=== PATIENT | male | born 1950 | race African-American/Black ===

== ENCOUNTER 2024-09-19 17:49 | Emergency (ER) | payer SELFPAY ==
[~2024-09-19] VITALS: Ht 190.5 cm; Wt 120.0 kg
[2024-09-19 19:30] VITALS: O2SAT 100
[2024-09-19] MEDS: MIDAZOLAM HCL 2 MG/2 ML VIAL IM ONE (19:30)
[2024-09-19] MEDS: TETANUS AND DIPHTHERIA TOX/PF 0.5ML SYR (ADULT) IM ONE (20:32)
[2024-09-19 21:05] LABS: BASOPHILS % 1.7 % (0.0-2.0); HEMATOCRIT. 26.1 % (42.0-52.0); HEMOGLOBIN. 8.5 g/dL (14.0-18.0); LYMPHOCYTES % 44.8 % (20.0-50.0); MEAN CORPUSCULAR HEMOGLOBIN 28.8 pg (28.0-32.0); MEAN CORPUSCULAR HGB CONC 32.6 g/dL (31.0-37.0); MEAN CORPUSCULAR VOLUME 88.3 fL (80.0-94.0); MEAN PLATELET VOLUME 7.7 fl (7.4-10.4); MONOCYTES % 7.4 % (2.0-8.0); NEUTROPHILS % 45.1 % (40.0-76.0); PLATELET 292 x1000/uL (130-400); RED BLOOD CELL COUNT 2.96 mill/uL (4.7-6.1); RED CELL DISTRIBUTION WIDTH 17.6 % (11.6-14.6); WHITE BLOOD COUNT 3.2 x1000/uL (4.5-11.0)
[2024-09-19 21:06] LABS: CHLORIDE 113 mEq/L (98-107); POTASSIUM 3.9 mEq/L (3.5-5.1); SODIUM 146 mEq/L (136-145)
[2024-09-19 21:07] LABS: CALCIUM 8.6 mg/dL (8.7-10.4); CARBON DIOXIDE 25 mEq/L (21-32)
[2024-09-19 21:12] LABS: CREATININE 1.1 mg/dL (0.6-1.3); GLUCOSE 79 mg/dL (70-105); UREA NITROGEN BLOOD 11 mg/dL (9-23)
[2024-09-19 21:13] LABS: ETHANOL BLOOD 278 mg/dL (<10)
[2024-09-19] MEDS ORDERED: IBUP-2029 MT (21:57)
[2024-09-19 22:16] VITALS: BP 148/82; PULSE 57; RESP 17; TEMP 37.05852; O2SAT 100
== END 2024-09-19 22:17 | disposition home or self-care (01) ==
LOC: ER 17:49
DX: F10.129 Alcohol abuse with intoxication, unspecified (principal); M17.12 Unilateral primary osteoarthritis, left knee; F19.90 Other psychoactive substance use, unspecified, uncomplicated; Y90.8 Blood alcohol level of 240 mg/100 ml or more
CPT/HCPCS: 80048; 80320; 85025; 36415; 71045; 72170; 73560; 70450; 72125; 90714; 90471; 96372; 99285; J2250; Z7610 ×2; G0480

== ENCOUNTER 2025-08-17 16:39 | Emergency (ER) | payer MEDICARE, OTHER ==
[~2025-08-17] VITALS: Ht 185.4 cm; Wt 91.0 kg
[~2025-08-17 16:39] MED LIST: AMLO5TAB88 PO; FERR325T6 MT; LOSA50TA41 PO; PANT40TA51 MT
[2025-08-17 16:41] VITALS: O2SAT 95
[2025-08-17] MEDS: SODIUM CHLORIDE 0.9% 1,000 ML IV ONE (19:18)
[2025-08-17 19:23] LABS: BASOPHILS % 0.9 % (0.0-2.0); EOSINOPHILS % 3.0 % (0.0-5.0); HEMATOCRIT. 38.5 % (42.0-52.0); HEMOGLOBIN. 12.3 g/dL (14.0-18.0); LYMPHOCYTES % 19.6 % (20.0-50.0); MEAN PLATELET VOLUME 8.2 fl (7.4-10.4); MONOCYTES % 12.1 % (2.0-8.0); NEUTROPHILS % 64.4 % (40.0-76.0); PLATELET 215 x1000/uL (130-400); RED BLOOD CELL COUNT 4.22 mill/uL (4.7-6.1); RED CELL DISTRIBUTION WIDTH 14.2 % (11.6-14.6)
[2025-08-17 19:39] LABS: TROPONIN I HIGH SENSITIVITY 4 ng/L (3.0-53); UREA NITROGEN BLOOD 9 mg/dL (9-23)
[2025-08-17 19:41] LABS: ASPARTATE AMINOTRANSFERASE 21 IU/L (<34); BILIRUBIN DIRECT < 0.1 mg/dL (<=3.0); BILIRUBIN TOTAL < 0.2 mg/dL (0.1-1.0); PROTEIN TOTAL 7.3 g/dL (6.0-8.3)
[2025-08-17 19:44] LABS: CREATININE 1.7 mg/dL (0.6-1.3)
[2025-08-17 20:34] VITALS: BP 180/74; PULSE 62; RESP 15; TEMP 36.7; O2SAT 99
== END 2025-08-17 20:35 | disposition home or self-care (01) ==
LOC: ER 16:39
DX: R55 Syncope and collapse (principal); E86.0 Dehydration; I10 Essential (primary) hypertension; Z79.899 Other long term (current) drug therapy
CPT/HCPCS: 99285; 96360; 71045; 80076; 80048; 82550; 83690; 85025; 84484; 36415; 93005; J7030